=== PATIENT | female | born 1940 | race Caucasian/White ===

== ENCOUNTER 2024-04-11 08:10 | Emergency (ER) | payer MEDICARE ==
[2024-04-11 08:26] VITALS: RESP 16; TEMP 98.3
[2024-04-11] MEDS: MORPHINE SULFATE 4 MG/ML SYRINGE IVP STA (09:12)
[2024-04-11] MEDS: HYDROmorphone 0.5 MG/0.5 ML SYRINGE IVP STA (09:12)
--- NOTE | 2024-04-11 10:50 | CT ---
EXAMINATION TYPE: CT chest wo con DATE OF EXAM: 04/11/2024 COMPARISON: None HISTORY: 83-year-old female Fall, right sided chest and flank pain TECHNIQUE: Contiguous axial scanning of the chest without IV contrast. Coronal/sagittal reconstructio ns performed. CT DLP: 417.5mGycm. Automatic exposure control utilized for a dose reduction. FINDINGS: Heart upper limits of normal in size without pericardial effusion. Three-vessel coronary calcificatio ns are present. Borderline ectasia ascending aorta 3.5 cm. Mild/moderate atherosclerotic arch calcifications within t he thorax vessel branching anatomy. No thoracic lymph adenopathy by CT size criteria. Calcified lower right paratracheal and right hilar lymph nodes compatible with prior granulomas disease. Borderline caliber of main right and left pulmonary arteries measuring up to 2.5 cm may reflect unde rlying pulmonary arterial hypertension. Scattered mild some pleural reticular change/fibrosis throughout the lungs. Some additional strandy a telectasis or scarring in the lower lungs. No consolidation, pneumothorax, or pleural effusion. Calci fied granuloma lateral right mid lung. There is a small to moderate-sized hiatal hernia. Some possible mural thickening at the hiatal hernia , axial images 74. Possible layering sludge versus noncalcified gallstones. No abnormal gallbladder distention. Partially visualized right shoulder arthroplasty. Accentuated mid thoracic kyphosis with mild degener ative disc disease anteriorly. Advanced degenerative change suggested at the left hip with some possi ble distention of the subcoracoid bursa. No displaced rib fracture seen. IMPRESSION: 1. Scattered mild interstitial fibrosis and evidence of prior granulomatous disease. There may be christa e minimal underlying emphysema as well. 2. No acute traumatic sequela identified in the chest. 3. Three-vessel coronary artery calcifications. 4. Small to moderate-sized hiatal hernia. Some possible mural thickening within the hiatal hernia cou ld reflect partial distention, gastritis, or less likely a mucosal lesion. Direct visualization if cl inically indicated.
[2024-04-11] MEDS: LIDOCAINE 4% PATCH TOPICAL ONE (11:33)
--- NOTE | 2024-04-11 11:39 | ED ---
Fall HPI - General Chief Complaint: Fall Stated Complaint: Back pain Time Seen by Provider: 04/11/24 08:12 Source: patient, EMS Mode of arrival: EMS - History of Present Illness Initial Comments: 83-year-old female presents to the emergency department after a fall last night. Patient states she was attempting to change. She accidentally lost her footing in her camper and she fell with her back against a refrigerator. She states she slid down the refrigerator. She denies head injury. No loss of consciousness. She is complaining of pain in her left shoulder blade and left rib cage. EMS transported the patient to the hospital gave her 100 mics of fentanyl. She states this did help her symptoms she admits to pain with inspiration. No hip pain. No back pain. No neck pain. No other alleviating, precipitating or modifying factors - Related Data Previous Rx's Medication Instructions Recorded HYDROcodone/APAP 7.5-325MG [[place] 1 tab PO Q4HR PRN #18 tab 04/11/24 7.5-325] Lidocaine 5% Patch [Lidoderm] 1 patch TOPICAL DAILY #30 patch 04/11/24 Allergies Allergy/AdvReac Type Severity Reaction Status Date / Time morphine Allergy Rash/Hives Verified 04/11/24 09:08 Sulfa (Sulfonamide Allergy Rash/Hives Verified 04/11/24 08:26 Antibiotics) Review of Systems ROS Statement: Those systems with pertinent positive or pertinent negative responses have been documented in the HPI. ROS Other: All systems not noted in ROS Statement are negative. Past Medical History Past Medical History: Diabetes Mellitus, Hypertension, Osteoarthritis (OA), Thyroid Disorder Additional Past Medical History / Comment(s): Depression History of Any Multi-Drug Resistant Organisms: None Reported Past Surgical History: Back Surgery, Hysterectomy, Joint Replacement Additional Past Surgical History / Comment(s): Knee, hip replacement Past Psychological History: Depression Smoking Status: Former smoker Past Alcohol Use History: Occasional Past Drug Use History: None Reported General Exam Limitations: no limitations General appearance: alert, in no apparent distress Head exam: Present: atraumatic, normocephalic, normal inspection Eye exam: Present: normal appearance, PERRL, EOMI. Absent: scleral icterus, conjunctival injection, periorbital swelling ENT exam: Present: normal exam, mucous membranes moist Neck exam: Present: normal inspection. Absent: tenderness, meningismus, lymphadenopathy Respiratory exam: Present: normal lung sounds bilaterally, chest wall tenderness (Tenderness to palpation of the left scapula and posterior left ribs). Absent: respiratory distress, wheezes, rales, rhonchi, stridor Cardiovascular Exam: Present: regular rate, normal rhythm, normal heart sounds. Absent: systolic murmur, diastolic murmur, rubs, gallop, clicks GI/Abdominal exam: Present: soft, normal bowel sounds. Absent: distended, tenderness, guarding, rebound, rigid Extremities exam: Present: normal inspection, full ROM, normal capillary refill. Absent: tenderness, pedal edema, joint swelling, calf tenderness Back exam: Present: normal inspection Neurological exam: Present: alert, oriented X3, CN II-XII intact Psychiatric exam: Present: normal affect, normal mood Skin exam: Present: warm, dry, intact, normal color. Absent: rash Course Vital Signs 04/11/24 04/11/24 04/11/24 08:18 10:00 11:00 Temperature 98.3 F Pulse Rate 72 76 Respiratory 16 16 Rate Blood Pressure 126/72 123/60 O2 Sat by Pulse 92 L 96 99 Oximetry 04/11/24 12:04 Temperature Pulse Rate 70 Respiratory 16 Rate Blood Pressure 108/51 O2 Sat by Pulse 91 L Oximetry Medical Decision Making - Medical Decision Making Was pt. sent in by a medical professional or institution (LEO Tron[place], ICT EDUCATOR, urgent care, hospital, or fpc...) When possible be specific @ -No Did you speak to anyone other than the patient for history (EMS, parent, family, police, friend...)? What history was obtained from this source @ -I spoke with EMS and [id number] for history Did you review nursing and triage notes (agree or disagree)? Why? @ -I reviewed and agree with nursing and triage notes Were old charts reviewed (outside hosp., previous admission, EMS record, old EKG, old radiological studies, urgent care reports/EKG's, fpc records)? Report findings @ -No old charts were reviewed Differential Diagnosis (chest pain, altered mental status, abdominal pain women, abdominal pain men, vaginal bleeding, weakness, fever, dyspnea, syncope, headache, dizziness, GI bleed, back pain, seizure, CVA, palpatations, mental health, musculoskeletal)? @ -Differential Musculoskeletal Muscular strain, contusion, ligament sprain, fracture, arthritis, septic arthritis, bursitis, cellulitis, muscle spasm, nerve compression, DVT, arterial occlusion, herpes zoster, electrolyte abnormality, tumor.... This is not meant to be in all inclusive list EKG interpreted by me (3pts min.). @ -Not done X-rays interpreted by me (1pt min.). @ -None done CT interpreted by me (1pt min.). @ -Yes and demonstrates multiple left-sided rib fractures U/S interpreted by me (1pt. min.). @ -None done What testing was considered but not performed or refused? (CT, X-rays, U/S, labs)? Why? @ -None What meds were considered but not given or refused? Why? @ -None Did you discuss the management of the patient with other professionals (professionals i.e. , PA, ICT EDUCATOR, lab, RT, psych nurse, social and political studies professor, check out cashier, teacher, licensed loan officer, keycase assembler)? Give summary @ -No Was smoking cessation discussed for >3mins.? @ -No Was critical care preformed (if so, how long)? @ -No Were there social determinants of health that impacted care today? How? (Homelessness, low income, unemployed, alcoholism, drug addiction, transportation, low edu. Level, literacy, decrease access to med. care, group home, rehab)? @ -No Was there de-escalation of care discussed even if they declined (Discuss DNR or withdrawal of care, Hospice)? DNR status @ -No What co-morbidities impacted this encounter? (DM, HTN, Smoking, COPD, CAD, Cancer, CVA, ARF, Chemo, Hep., AIDS, mental health diagnosis, sleep apnea, morbid obesity)? @ -None Was patient admitted / discharged? Hospital course, mention meds given and route, prescriptions, significant lab abnormalities, going to OR and other pertinent info. @ -Upon arrival patient seen and evaluated in room 24. Thorough history and physical exam was performed. Patient given additional pain medications before she is sent for CT. CT positive for multiple left-sided rib fractures. This is discussed with the patient. I did discuss overnight observation for pain control however patient would like to go home. She will be prescribed [place]. Side effect profile was discussed including fall risk. Patient also be prescribed Lidoderm patches. Instructed to use them as directed. Follow-up with her doctor and return for any new or worsening symptoms. Patient agreeable plan was discharged in stable condition Undiagnosed new problem with uncertain prognosis? @ -No Drug Therapy requiring intensive monitoring for toxicity (Heparin, Nitro, Insulin, Cardizem)? @ -No Were any procedures done? @ -No Diagnosis/symptom? @ -Acute fall, acute left-sided rib fractures Acute, or Chronic, or Acute on Chronic? @ -Acute Uncomplicated (without systemic symptoms) or Complicated (systemic symptoms)? @ -Complicated Side effects of treatment? @ -No Exacerbation, Progression, or Severe Exacerbation? @ -No Poses a threat to life or bodily function? How? (Chest pain, [place], [place], pneumonia, PE, COPD, DKA, ARF, appy, cholecystitis, CVA, Diverticulitis, Homicidal, Suicidal, threat to staff... and all critical care pts) @ -No Disposition Clinical Impression: Fall, Rib fracture Disposition: HOME SELF-CARE Condition: Stable Instructions (If sedation given, give patient instructions): Rib Fracture (ED), Fall Prevention for Older Adults (ED) Additional Instructions: Alternate taking the [place] with Advil every 4 hours. Use your incentive spirometer at least 10 times per day. Follow-up with your doctor. Return to the emergency department for any new or worsening symptoms to include fevers, chills, cough or shortness of breath Prescriptions: Lidocaine 5% Patch [Lidoderm] 1 patch TOPICAL DAILY #30 patch HYDROcodone/APAP 7.5-325MG [[place] 7.5-325] 1 tab PO Q4HR PRN #18 tab PRN Reason: Pain Is patient prescribed a controlled substance at d/c from ED?: Yes When asked, does pt state using other controlled substances?: No If prescribed controlled substance>3 days was MAPS reviewed?: Prescribed <3 Days If opioid is for acute pain is fill amount 7 days or less?: Yes Referrals: Raleigh Kenyon DO [Primary Care Provider] - 1-2 days Time of Disposition: 11:47
[2024-04-11 12:05] VITALS: BP 108/51; PULSE 70
== END 2024-04-11 12:22 | disposition home or self-care (01) ==
LOC: EC 08:10
DX: S22.32XA Fracture of one rib, left side, initial encounter for closed fracture (principal); Z87.891 Personal history of nicotine dependence; Z88.1 Allergy status to other antibiotic agents; Z88.2 Allergy status to sulfonamides; Z88.5 Allergy status to narcotic agent; W18.30XA Fall on same level, unspecified, initial encounter
CPT/HCPCS: 71250; 99284; 96374; J1170

== ENCOUNTER 2024-07-14 18:47 | Observation (INO) | payer MEDICARE ==
--- NOTE | 2024-07-14 18:57 | ED ---
Weakness HPI - General Stated complaint: weakness Time Seen by Provider: 07/14/24 18:54 Source: RN notes reviewed, old records reviewed Mode of arrival: EMS Limitations: no limitations - History of Present Illness Initial comments: This is a 83-year-old female to the ER for evaluation patient [facility] for evaluation of significant weakness brought in by EMS patient has fever and has known coronavirus MD Complaint: generalized weakness, lack of energy, difficulty walking -: days(s) Location: generalized Severity: moderate Severity scale (1-10): 5 Consistency: constant Improves with: none Worsens with: none Context: history of similar Associated Symptoms: denies other symptoms - Related Data Home Medications Medication Instructions Recorded Confirmed Albuterol Sulfate [Albuterol 2 puff INHALATION RT-Q6H PRN 07/15/24 07/15/24 Sulfate Hfa] Atorvastatin [Lipitor] 40 mg PO DAILY 07/15/24 07/15/24 Divalproex ER [Depakote ER] 500 mg PO HS 07/15/24 07/15/24 Escitalopram [Lexapro] 10 mg PO DAILY 07/15/24 07/15/24 Fluticasone Nasal [place] [Flonase 2 spr EA NOSTRIL DAILY 07/15/24 07/15/24 Nasal [place]] Fosfomycin Tromethamine 3 gm PO DIRECTED 07/15/24 07/15/24 Furosemide [Lasix] 20 mg PO DAILY 07/15/24 07/15/24 Levothyroxine Sodium [Synthroid] 75 mcg PO DAILY 07/15/24 07/15/24 Methenamine Hippurate 1 gm PO BID-W/MEALS 07/15/24 07/15/24 Metoprolol Tartrate [Lopressor] 25 mg PO Q8H 07/15/24 07/15/24 Mirabegron [Myrbetriq] 50 mg PO DAILY 07/15/24 07/15/24 Nystatin/Triamcin Cream [Mycolog 1 applic TOPICAL BID 07/15/24 07/15/24 100,000-0.1 Unit/gm-% Cream] Primidone [Mysoline] 1 dose PO DIRECTED 07/15/24 07/15/24 estradioL [Estring] 1 ring VAGINAL Q84D 07/15/24 07/15/24 rOPINIRole HCL [Requip] 0.25 mg PO HS 07/15/24 07/15/24 Allergies Allergy/AdvReac Type Severity Reaction Status Date / Time morphine Allergy Rash/Hives Verified 07/15/24 09:41 Sulfa (Sulfonamide Allergy Rash/Hives Verified 07/15/24 09:41 Antibiotics) Review of Systems ROS Statement: Those systems with pertinent positive or pertinent negative responses have been documented in the HPI. ROS Other: All systems not noted in ROS Statement are negative. Past Medical History Past Medical History: Diabetes Mellitus, Hypertension, Osteoarthritis (OA), Thyroid Disorder Additional Past Medical History / Comment(s): Depression History of Any Multi-Drug Resistant Organisms: None Reported Past Surgical History: Back Surgery, Hysterectomy, Joint Replacement Additional Past Surgical History / Comment(s): Knee, hip replacement Past Psychological History: Depression Smoking Status: Former smoker Past Alcohol Use History: Occasional Past Drug Use History: None Reported - Past Family History Mother Family Medical History: Rheumatoid Arthritis (RA) General Exam General appearance: alert, in no apparent distress Head exam: Present: atraumatic, normocephalic, normal inspection Eye exam: Present: normal appearance, PERRL, EOMI. Absent: scleral icterus, conjunctival injection, periorbital swelling ENT exam: Present: normal exam, mucous membranes moist Neck exam: Present: normal inspection. Absent: tenderness, meningismus, lymphadenopathy Respiratory exam: Present: normal lung sounds bilaterally. Absent: respiratory distress, wheezes, rales, rhonchi, stridor Cardiovascular Exam: Present: regular rate, normal rhythm, normal heart sounds. Absent: systolic murmur, diastolic murmur, rubs, gallop, clicks GI/Abdominal exam: Present: soft, normal bowel sounds. Absent: distended, tenderness, guarding, rebound, rigid Extremities exam: Present: normal inspection, full ROM, normal capillary refill. Absent: tenderness, pedal edema, joint swelling, calf tenderness Back exam: Present: normal inspection Neurological exam: Present: alert, oriented X3, CN II-XII intact Psychiatric exam: Present: normal affect, normal mood Skin exam: Present: warm, dry, intact, normal color. Absent: rash Course Vital Signs 07/14/24 07/14/24 07/14/24 18:52 21:39 22:56 Temperature 101.0 F H 97.8 F Pulse Rate 76 71 Pulse Rate [ 67 Journeyman Carpenter ] Respiratory 16 16 18 Rate Blood Pressure 126/64 115/63 Blood Pressure 120/66 [Right Arm] O2 Sat by Pulse 96 93 L 94 L Oximetry 07/15/24 07/15/24 07/15/24 01:37 06:40 07:51 Temperature 97.9 F Pulse Rate 63 Pulse Rate [ 64 70 Journeyman Carpenter ] Respiratory 18 18 18 Rate Blood Pressure 112/71 Blood Pressure 117/58 94/51 [Right Arm] O2 Sat by Pulse 96 99 95 Oximetry 07/15/24 07/15/24 07/15/24 08:44 09:04 12:30 Temperature Pulse Rate 62 71 Pulse Rate [ Journeyman Carpenter ] Respiratory 18 18 Rate Blood Pressure 125/71 134/82 Blood Pressure [Right Arm] O2 Sat by Pulse 97 97 97 Oximetry 07/15/24 07/15/24 15:14 15:22 Temperature 98.1 F Pulse Rate 72 74 Pulse Rate [ Journeyman Carpenter ] Respiratory 18 188 H Rate Blood Pressure 115/70 119/61 Blood Pressure [Right Arm] O2 Sat by Pulse 98 96 Oximetry - Reevaluation(s) Reevaluation #1: 07/14/24 18:55 Medical records reviewed Reevaluation #2: 07/14/24 18:56 Patient symptoms improved Reevaluation #3: Patient symptoms are improved here in the ER Reevaluation #4: Was pt. sent in by a medical professional or institution (, PA, LOAN PROCESSOR, urgent care, hospital, or detention...) When possible be specific @ -no Did you speak to anyone other than the patient for history (EMS, parent, family, police, friend...)? What history was obtained from this source @ -no Did you review nursing and triage notes (agree or disagree)? Why? @ -agree Are old charts reviewed (outside hosp., previous admission, EMS record, old EKG, old radiological studies, urgent care reports/EKG's, detention records)? Report findings @ -yes Differential Diagnosis (chest pain, altered mental status, abdominal pain women, abdominal pain men, vaginal bleeding, weakness, fever, dyspnea, syncope, head ache, dizziness, GI bleed, back pain, seizure, CVA, palpatations, mental health, musculoskeletal)? @ -prior EKG interpreted by me (3pts min.). @ -yes X-rays interpreted by me (1pt min.). @ -yes negative for acute disease CT interpreted by me (1pt min.). @ -no U/S interpreted by me (1pt. min.). @ -no What testing was considered but not performed or refused? (CT, X-rays, U/S, labs)? Why? @ -none What meds were considered but not given or refused? Why? @ -none Did you discuss the management of the patient with other professionals (professionals i.e. , PA, LOAN PROCESSOR, lab, RT, psych nurse, social services assistant, nurse college, teacher, commercial escrow officer, case management social worker)? Give summary @ -no Was smoking cessation discussed for >3mins.? @ -no Was critical care preformed (if so, how long)? @ -no Were there social determinants of health that impacted care today? How? (Homelessness, low income, unemployed, alcoholism, drug addiction, transportation, low edu. Level, literacy, decrease access to med. care, skilled nursing, rehab)? @ -none Was there de-escalation of care discussed even if they declined (Discuss DNR or withdrawal of care, Hospice)? DNR status @ -no What co-morbidities impacted this encounter? (DM, HTN, Smoking, COPD, CAD, Cancer, CVA, ARF, Chemo, Hep., AIDS, mental health diagnosis, sleep apnea, mor bid obesity)? @ -none Was patient admitted / discharged? Hospital course, mention meds given and ro lety, prescriptions, significant lab abnormalities, going to OR and other pertinent info. @ - 83 female to ER for positive coronavirus. Patient is found to have fever and persistent symptoms here in the ER no pneumonia, patient will be admitted for supportive care Admitted Undiagnosed new problem with uncertain prognosis? @ -no Drug Therapy requiring intensive monitoring for toxicity (Heparin, Nitro, Insulin, Cardizem)? @ -no Were any procedures done? @ -no Diagnosis/symptom? @ -COVID fever and coronavirus Acute, or Chronic, or Acute on Chronic? @ -Acute Uncomplicated (without systemic symptoms) or Complicated (systemic symptoms)? @ -Complicated Side effects of treatment? @ -no Exacerbation, Progression, or Severe Exacerbation? @ -exacerbation Poses a threat to life or bodily function? How? (Chest pain, [place], [place], pneumonia, PE, COPD, DKA, ARF, appy, cholecystitis, CVA, Diverticulitis, Homicidal, Suicidal, threat to staff... and all critical care pts) @ -yes extremes of age Reevaluation #5: Differential Weakness: Hypoglycemia, shock, sepsis, hyponatremia, anemia, infection, MA, ETOH, adverse medicine reaction, overdose, stroke, this is not meant to be an all-inclusive list. - Consultations Consultation #1: Spoke with admitting physicians who agreed to admit this patient EKG Findings - EKG Comments: EKG Findings:: EKG is sinus 74 NH 163 QRS 81 QTc 423 - EKG Results: EKG: interpreted by GIL Medical Decision Making - Medical Decision Making 83 female to ER for positive coronavirus. Patient is found to have fever and persistent symptoms here in the ER no pneumonia, patient will be admitted for supportive care - Lab Data Result diagrams: 07/17/24 02:53 07/17/24 02:53 Lab Results 07/14/24 07/14/24 07/14/24 Range/Units 12:34 20:24 20:24 WBC 8.4 (3.8-10.6) k/uL RBC 4.53 (3.80-5.40) m/uL Hgb 13.5 (11.4-16.0) gm/dL Hct 42.9 (34.0-46.0) % MCV 94.8 (80.0-100.0) fL MCH 29.9 (25.0-35.0) pg MCHC 31.6 (31.0-37.0) g/dL RDW 14.2 (11.5-15.5) % Plt Count 174 (150-450) k/uL MPV 8.2 Neutrophils % 67 % Lymphocytes % 19 % Monocytes % 9 % Eosinophils % 1 % Basophils % 0 % Neutrophils # 5.6 (1.3-7.7) k/uL Lymphocytes # 1.6 (1.0-4.8) k/uL Monocytes # 0.8 (0-1.0) k/uL Eosinophils # 0.1 (0-0.7) k/uL Basophils # 0.0 (0-0.2) k/uL PT 11.3 (10.0-12.5) sec INR 1.0 (<1.2) APTT 31.5 H (22.0-30.0) sec Sodium (137-145) mmol/L Potassium (3.5-5.1) mmol/L Chloride (98-107) mmol/L Carbon Dioxide (22-30) mmol/L Anion Gap mmol/L BUN (7-17) mg/dL Creatinine (0.52-1.04) mg/dL Est GFR (CKD-EPI)AfAm (>60 ml/min/1.73 sqM) Est GFR (CKD-EPI)NonAf (>60 ml/min/1.73 sqM) Glucose (74-99) mg/dL Plasma Lactic Acid Yasmany (0.7-2.0) mmol/L Calcium (8.4-10.2) mg/dL Phosphorus (2.5-4.5) mg/dL Magnesium (1.6-2.3) mg/dL Total Bilirubin (0.2-1.3) mg/dL AST (14-36) U/L ALT (4-34) U/L Alkaline Phosphatase (38-126) U/L Troponin I (0.000-0.034) ng/mL Total Protein (6.3-8.2) g/dL Albumin (3.5-5.0) g/dL TSH (0.465-4.680) mIU/L Urine Color Yellow Urine Appearance Cloudy H (Clear) Urine pH 5.5 (5.0-8.0) Ur Specific [place] 1.021 (1.001-1.035) Urine Protein 1+ H (Negative) Urine Glucose (UA) Negative (Negative) Urine Ketones Negative (Negative) Urine Blood Trace H (Negative) Urine Nitrite Positive H (Negative) Urine Bilirubin Negative (Negative) Urine Urobilinogen <2.0 (<2.0) mg/dL Ur Leukocyte Esterase Large H (Negative) Urine RBC 8 H (0-5) /hpf Urine WBC >182 H (0-5) /hpf Urine WBC Clumps Rare H (None) /hpf Ur Squamous Epith Cells 10 H (0-4) /hpf Urine Bacteria Many H (None) /hpf Urine Mucus Rare H (None) /hpf 07/14/24 07/14/24 07/14/24 Range/Units 20:24 20:24 20:24 WBC (3.8-10.6) k/uL RBC (3.80-5.40) m/uL Hgb (11.4-16.0) gm/dL Hct (34.0-46.0) % MCV (80.0-100.0) fL MCH (25.0-35.0) pg MCHC (31.0-37.0) g/dL RDW (11.5-15.5) % Plt Count (150-450) k/uL MPV Neutrophils % % Lymphocytes % % Monocytes % % Eosinophils % % Basophils % % Neutrophils # (1.3-7.7) k/uL Lymphocytes # (1.0-4.8) k/uL Monocytes # (0-1.0) k/uL Eosinophils # (0-0.7) k/uL Basophils # (0-0.2) k/uL PT (10.0-12.5) sec INR (<1.2) APTT (22.0-30.0) sec Sodium 136 L (137-145) mmol/L Potassium 4.6 (3.5-5.1) mmol/L Chloride 101 (98-107) mmol/L Carbon Dioxide 28 (22-30) mmol/L Anion Gap 7 mmol/L BUN 13 (7-17) mg/dL Creatinine 0.83 (0.52-1.04) mg/dL Est GFR (CKD-EPI)AfAm 75 (>60 ml/min/1.73 sqM) Est GFR (CKD-EPI)NonAf 65 (>60 ml/min/1.73 sqM) Glucose 115 H (74-99) mg/dL Plasma Lactic Acid Yasmany 1.3 (0.7-2.0) mmol/L Calcium 9.2 (8.4-10.2) mg/dL Phosphorus 3.6 (2.5-4.5) mg/dL Magnesium 1.5 L (1.6-2.3) mg/dL Total Bilirubin 0.6 (0.2-1.3) mg/dL AST 22 (14-36) U/L ALT 7 (4-34) U/L Alkaline Phosphatase 72 (38-126) U/L Troponin I <0.012 (0.000-0.034) ng/mL Total Protein 6.5 (6.3-8.2) g/dL Albumin 3.6 (3.5-5.0) g/dL TSH 2.850 (0.465-4.680) mIU/L Urine Color Urine Appearance (Clear) Urine pH (5.0-8.0) Ur Specific [place] (1.001-1.035) Urine Protein (Negative) Urine Glucose (UA) (Negative) Urine Ketones (Negative) Urine Blood (Negative) Urine Nitrite (Negative) Urine Bilirubin (Negative) Urine Urobilinogen (<2.0) mg/dL Ur Leukocyte Esterase (Negative) Urine RBC (0-5) /hpf Urine WBC (0-5) /hpf Urine WBC Clumps (None) /hpf Ur Squamous Epith Cells (0-4) /hpf Urine Bacteria (None) /hpf Urine Mucus (None) /hpf - Radiology Data Radiology results: report reviewed (Chest x-ray is negative for acute disease), image reviewed Critical Care Time Critical Care Time: Yes Total Critical Care Time: 31 Disposition Clinical Impression: COVID, Fever Disposition: ADMITTED IP TO THIS [facility] Condition: Fair Is patient prescribed a controlled substance at d/c from ED?: No Time of Disposition: 22:40
[2024-07-14] MEDS: SODIUM CHLORIDE 0.9% 1,000 ML IV STA (20:27)
[2024-07-14] MEDS ORDERED: ACETAMINOPHEN TAB 325 MG TAB PO PRN (20:48)
[2024-07-14] MEDS ORDERED: IBUPROFEN 400 MG TAB PO PRN (20:48)
[2024-07-14] MEDS ORDERED: ONDANSETRON 4 MG/2 ML VIAL IVP PRN (20:48)
[2024-07-14] MEDS ORDERED: NALOXONE 0.4 MG/ML 1 ML VIAL IV PRN (20:48)
[2024-07-14 20:52] LABS: Basophils % (A) 0 %; Eosinophils # (A) 0.1 k/uL (0-0.7); Eosinophils % (A) 1 %; HCT 42.9 % (34.0-46.0); HGB 13.5 gm/dL (11.4-16.0); Lymphocytes # (A) 1.6 k/uL (1.0-4.8); Lymphocytes % (A) 19 %; MCH 29.9 pg (25.0-35.0); MCHC 31.6 g/dL (31.0-37.0); MCV 94.8 fL (80.0-100.0); Mean Platelet Volume 8.2; Monocytes # (A) 0.8 k/uL (0-1.0); Monocytes % (A) 9 %; Neutrophils # (A) 5.6 k/uL (1.3-7.7); Neutrophils % (A) 67 %; Platelet Count 174 k/uL (150-450); RBC 4.53 m/uL (3.80-5.40); RDW 14.2 % (11.5-15.5); WBC 8.4 k/uL (3.8-10.6)
[2024-07-14 20:57] LABS: Partial Thromboplastin Time 31.5 sec (22.0-30.0); Prothrombin Time 11.3 sec (10.0-12.5)
[2024-07-14 20:59] LABS: ALT 7 U/L (4-34); African American GFR (CKD) 75 (>60 ml/min/1.73 sqM); Albumin 3.6 g/dL (3.5-5.0); Anion Gap 7 mmol/L; Blood Urea Nitrogen 13 mg/dL (7-17); Calcium 9.2 mg/dL (8.4-10.2); Carbon Dioxide 28 mmol/L (22-30); Chloride 101 mmol/L (98-107); Glucose 115 mg/dL (74-99); Non-African American GFR(CKD) 65 (>60 ml/min/1.73 sqM); Sodium 136 mmol/L (137-145); Total Bilirubin 0.6 mg/dL (0.2-1.3); Total Protein 6.5 g/dL (6.3-8.2)
[2024-07-14 21:07] LABS: AST 22 U/L (14-36); Alkaline Phosphatase 72 U/L (38-126); Potassium 4.6 mmol/L (3.5-5.1)
[2024-07-14 21:08] LABS: Magnesium 1.5 mg/dL (1.6-2.3); Phosphorus 3.6 mg/dL (2.5-4.5)
[2024-07-14] MEDS: ACETAMINOPHEN IV (For NPO) 1,000 MG in EMPTY BAG 1 BAG IVPB STA (21:14)
[2024-07-14] MEDS: DEXAMETHASONE SOD PHOSPHATE 10 MG/ML 1 ML VIAL IVP STA (21:15)
[2024-07-14] MEDS: IBUPROFEN IV 800 MG in SODIUM CHLORIDE 0.9% 250 ML IV ONE (21:30)
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
[2024-07-14] MEDS: PANTOPRAZOLE 40 MG/10 ML VIAL IV SCH (23:05)
--- NOTE | 2024-07-15 03:21 | P.HPIM ---
History of Present Illness H&P Date: 07/15/24 Chief Complaint: Weakness Patient is a 83-year-old female with past medical history of multiple falls presented to the ED with weakness. She mentions of having multiple falls on Thursday(07/11/24) for which she went to [facility]. She mentions the weakness started around the same time. She does not report any prodromal signs before the fall or headache/confusion after the fall, denies jerking movement of the limbs. She was not found to have any fractures but tested positive for COVID-19 and was discharged shortly after from [facility]. But her son (who she gustavo es with) felt she needs care in the hospital which is when she came to the ER here at [facility]. She reports having mild shortness of breath and dry cough without any production. Her voice is hoarse which she attributes to laryngitis from coughing. She also reports not being able to eat well since January 2024 because of some problem in her mouth. She visited her dentist but they did not find any abnormalities. She has also gotten tested for Parkinson's due to tremors but was told she does not have it. She reports having joint pain from arthritis as well as stress urinary incontinence for which she uses a sling. Denies fever, chills, chest pain, abdominal pain, nausea, vomiting, dysuria. Vitals: T 101 F, P 76 bpm, RR 16, BP 106/64, O2 sat 96% on 2 L nasal cannula Chest x-ray: Small focal opacity in the right paratracheal region consistent with pneumonia or neoplasm. Labs: WBC 8.4, hemoglobin 13.5, APTT 31.5, sodium 136, glucose 115, magnesium 1.5, troponin<0.012, TSH 2.850 ED documentation reviewed. Review of systems: Pertinent positives and negatives as discussed in HPI, a complete review of systems was performed and all other systems are negative. PMH: Diabetes, hypertension, osteoarthritis, depression, hypothyroidism PSH: Appendicectomy, hysterectomy, knee replacement surgery, back fusion, shoulder replacement surgery Social history: Tobacco: Former smoker Alcohol: Occasional Recreational drugs: Denies use Travel: No recent travel history Sick contacts: None Physical examination: Vital signs reviewed General: non toxic, no distress, appears at stated age, overweight Derm: no unusual rashes/lesions, warm Head: atraumatic, normocephalic, symmetric Eyes: EOMI, anicteric sclera ENT: Nose and ears atraumatic Mouth: no lip lesion, mucus membranes moist Cardiovascular: S1S2 reg, no murmur, no edema Lungs: CTA bilateral, no rhonchi, no rales, no accessory muscle use Abdominal: soft, nontender to palpation, no guarding Ext: muscle strength 5 out of 5 in all 4 extremities grossly, ulnar drift, [place] nodes Neuro: CN II-XI grossly intact, no gross focal neuro deficits Psych: Alert, oriented to person and place, not oriented to time, appropriate affect Assessment/Plan: Patient is an 83-year-old female with past medical history of multiple falls who presented to the ED with weakness, shortness of breath, cough with COVID-19 infection. #. COVID-19 pneumonitis, with hypoxic resp failure - Patient currently on 2 L of oxygen via nasal cannula and saturating at 96% - S/p Decadron 10 mg IVP once stat - C/w Decadron 6 mg po qd - Obtain CRP, LDH, Procalcitonin #. History of multiple falls, Fragility fracture Start on calcium and Vitamin D supplements - Patient would likely benefit from bisphosphonate use - PT consult #. Mild Hypomagnesemia Magnesium 1.5 - Replace and monitor Monitor BMP #. Mild hyponatremia, (unknown baseline) Sodium 136 Monitor BMP #. Pain management - C/w acetaminophen 650 mg p.o. every 6 hours as needed and ibuprofen 4 mg p.o. every 6 hours as needed #. Nausea and vomiting - C/W ondansetron 4 mg IV every 8 hours as needed Chronic conditions #. Hypertension #. Type II diabetes mellitus #. History of hypothyroidism #. History of osteoarthritis #. History of depression - C/W home meds once confirmed - Check A1C levels F: None E: Replete as required N: Regular diet A: DVT prophylaxis: Lovenox SQ 40 mg daily GI prophylaxis: Protonix 40 mg IV daily The patient is admitted with an anticipated more than 2 midnight stay for evaluation of weakness, shortness of breath and cough CODE STATUS: Full code Discussed with: Patient Anticipated discharge place: Home Past Medical History Past Medical History: Diabetes Mellitus, Hypertension, Osteoarthritis (OA), Thyroid Disorder Additional Past Medical History / Comment(s): Depression History of Any Multi-Drug Resistant Organisms: None Reported Past Surgical History: Back Surgery, Hysterectomy, Joint Replacement Additional Past Surgical History / Comment(s): Knee, hip replacement Past Psychological History: Depression Smoking Status: Former smoker Past Alcohol Use History: Occasional Past Drug Use History: None Reported Medications and Allergies Home Medications Medication Instructions Recorded Confirmed Type HYDROcodone/APAP 7.5-325MG [[place] 1 tab PO Q4HR PRN #18 tab 04/11/24 Rx 7.5-325] Lidocaine 5% Patch [Lidoderm] 1 patch TOPICAL DAILY #30 patch 04/11/24 Rx Allergies Allergy/AdvReac Type Severity Reaction Status Date / Time morphine Allergy Rash/Hives Verified 07/14/24 19:02 Sulfa (Sulfonamide Allergy Rash/Hives Verified 07/14/24 19:02 Antibiotics) Physical Exam Vitals: Vital Signs Temp Pulse Pulse Resp BP BP Pulse Ox 07/15/24 01:37 64 18 117/58 96 07/14/24 22:56 97.8 F 67 18 120/66 94 L 07/14/24 21:39 71 16 115/63 93 L 07/14/24 18:52 101.0 F H 76 16 126/64 96 Intake and Output 07/14/24 07/14/24 07/15/24 14:59 22:59 06:59 Other: Weight 63.503 kg Results CBC & Chem 7: 07/14/24 20:24 07/14/24 20:24 Labs: Abnormal Lab Results - Last 24 Hours (Table) 07/14/24 07/14/24 Range/Units 20:24 20:24 APTT 31.5 H (22.0-30.0) sec Sodium 136 L (137-145) mmol/L Glucose 115 H (74-99) mg/dL Magnesium 1.5 L (1.6-2.3) mg/dL Thrombosis Risk Factor Assmnt - Choose All That Apply Each Risk Factor Represents 3 Points: Age 75 years or older Thrombosis Risk Factor Assessment Total Risk Factor Score: 3 Thrombosis Risk Factor Assessment Level: Moderate Risk
[2024-07-15] MEDS ORDERED: Magnesium Replacement Protocol 1 EACH MISC MISCELLANE PRN (06:15)
[2024-07-15] MEDS: CALCIUM CARB-VIT D 500 MG-5 MCG TAB PO SCH (07:46)
[2024-07-15] MEDS: dexAMETHasone 2 MG TAB PO SCH (08:47)
[2024-07-15 08:48] LABS: LDH 193 U/L (120-246); Magnesium 1.6 mg/dL (1.5-2.4); Phosphorus 4.1 mg/dL (2.4-5.1)
[2024-07-15] MEDS: ENOXAPARIN 40 MG/0.4 ML SYRINGE SQ SCH (08:48)
[2024-07-15] MEDS ORDERED: CHOLECALCIFEROL 125 MCG (5000 IU) TABLET PO SCH (09:00)
[2024-07-15 09:21] LABS: Basophils # (A) 0.02 X 10*3/uL (0.00-0.10); Basophils % (A) 0.3 %; Eosinophils # (A) 0 X 10*3/uL (0.04-0.35); Eosinophils % (A) 0 %; HCT 40.6 % (37.2-46.3); Lymphocytes # (A) 1.11 X 10*3/uL (0.90-5.00); MCH 30.7 pg (27.0-32.0); MCV 95.8 FL (80.0-97.0); Mean Platelet Volume 11.6 FL (9.5-12.2); Monocytes # (A) 0.22 X 10*3/uL (0.20-1.00); Monocytes % (A) 3.6 %; NRBC Per 100 WBC 0 X 10*3/uL (0.00-0.01); Neutrophils # (A) 4.79 X 10*3/uL (1.80-7.70); Neutrophils % (A) 77.8 %; Platelet Count 166 X 10*3/uL (140-440); RBC 4.24 X 10*6/uL (4.10-5.20); RDW 14.7 % (11.5-14.5); WBC 6.16 X 10*3/uL (4.50-10.00)
[2024-07-15 09:30] LABS: ALT 5 U/L (8-44); AST 15 U/L (13-35); Albumin 3.4 g/dL (3.8-4.9); Albumin/Globulin Ratio 1.42 Ratio (1.60-3.17); Alkaline Phosphatase 87 U/L (41-126); Blood Urea Nitrogen 16.7 mg/dL (9.0-27.0); Calcium 8.6 mg/dL (8.7-10.3); Chloride 103 mmol/L (96-109); Globulin 2.4 g/dL (1.6-3.3); Glucose 174 mg/dL (70-110); Potassium 4.9 mmol/L (3.5-5.5); Sodium 137 mmol/L (135-145); Total Bilirubin 0.2 mg/dL (0.3-1.2); Total Protein 5.8 g/dL (6.2-8.2)
[2024-07-15 12:48] LABS: Appearance,Urine Cloudy (Clear); Bacteria,Urine Many /hpf; Bilirubin,Urine Negative (Negative); Blood,Urine Trace (Negative); Color,Urine Yellow; Glucose,Urine (UA) Negative (Negative); Ketones,Urine Negative (Negative); Leukocyte Esterase,Urine Large (Negative); Mucus,Urine Rare /hpf; Nitrite,Urine Positive (Negative); PH, Urine 5.5 (5.0-8.0); Protein,Urine 1+ (Negative); RBC,Urine 8 /hpf (0-5); Specific Gravity,Urine 1.021 (1.001-1.035); Squamous Epithelial Cell,Urine 10 /hpf (0-4); Urobilinogen,Urine <2.0 mg/dL (<2.0); WBC,Urine >182 /hpf (0-5)
[2024-07-15] MEDS ORDERED: ALBUTEROL HFA INHALER INHALATION PRN (16:24)
[2024-07-15] MEDS ORDERED: DEXTROSE 50% SYRINGE 50 ML IVP PRN ×2 (16:37)
--- NOTE | 2024-07-15 16:43 | P.PN ---
Subjective Progress Note Date: 07/15/24 Hospital course: Patient is a very pleasant 83-year-old female with a past medical history of hypertension, hypothyroidism, diabetes mellitus, and depression. She presented to the emergency department secondary to reports of weakness recurrent falls over the past week after recent diagnosis of COVID-19 infection. Upon arrival to our facility, patient underwent evaluation in the emergency department. Vital signs upon arrival show blood pressure 126/64, heart rate 76, respiratory rate 16, temp 101.0 F, and SpO2 of 96% on room air. 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 Labs completed and reviewed. CBC unremarkable. Coagulation profile showing high PTT of 31.5 otherwise normal findings. BMP showing no significant abnormalities. Blood glucose was 115. Lactic acid 1.3. Magnesium was low at 1.5. Liver profile unremarkable. Troponin was negative at less than 0.012 and TSH normal findings at 2.850. Urinalysis was a contaminated specimen, concerning for infection with nitrites, leukocyte esterase and greater than 182 WBCs. Patient admitted under our services at this time. Physical exam: Vital signs reviewed and stable. General: Nontoxic, no distress and appears stated age. Thin build Derm: Skin warm and dry, normal coloration for ethnicity. Head: Atraumatic, normocephalic and symmetric. Eyes: EOM's intact, no lid lag, and anicteric sclera Mouth: no lip lesions, mucus membranes moist Cardiovascular: regular rate and rhythm with normal S1S2, systolic murmur, positive posterior tibial pulses bilaterally, and cap refill < 2 seconds. Lungs: Respirations even, regular, and unlabored on room air. Lungs with soft expiratory wheezes, coarse cough noted at time of assessment Abdominal: soft, nontender to palpation, no guarding, no appreciable organomega ly Ext: ROM intact. No gross muscle atrophy, no edema, no contractures Neuro: Speech clear, face symmetrical and CN II-XII grossly intact with no noted focal neuro deficits Psych: Alert and oriented to person, place, time, and situation. Appropriate and pleasant affect. Assessment and Plan of Care: COVID-19 pneumonitis with hypoxic respiratory failure Acute respiratory failure with hypoxia secondary to COVID 19 pneumonia -Continue supplemental oxygen titrated as needed to maintain SPO2 equal to or greater than 90% -Continue albuterol inhaler 2 puffs every 6 hours as needed for wheezing/catherine rtness of breath -Patient placed on scheduled Robitussin 200 mg every 6 hours and as needed Tessalon pearls for persistent cough. -Telemetry monitoring. -Continue trending inflammatory markers -Encourage Incentive Spirometry 10-15x hourly while awake -Steroids: Decadron 6 mg daily -DVT prophylaxis with Lovenox. -Strict Droplet plus Contact precautions UTI -Follow-up on urine culture. -Continue IV antibiotics with Rocephin 2 g IVPB daily. Weakness with recurrent falls -Possibly secondary to acute infection with UTI as well as COVID-19 -Maintain fall precautions -Consult to physical therapy for evaluation. Diabetes mellitus with hyperglycemia -Patient placed on glycemic protocol with NovoLog sliding scale. Hypertension -Continue daily medication regimen with metoprolol tartrate 25 mg every 8 hours Hypothyroidism -Continue daily medication regimen with levothyroxine 75 mcg daily Hyperlipidemia -Continue daily medication regimen with atorvastatin 40 mg daily. Depression -Continue daily medication regimen with Depakote 500 mg nightly and Lexapro 10 mg daily CODE STATUS: Full code DVT prophylaxis: Lovenox Anticipated discharge date: Pending clinical course Anticipated discharge place: Pending clinical course Patient was seen independently by Nurse Pracitioner. This document was prepared using [employer] dictation software. Please allow for errors in regulatory coordinator, while rare they do occur. I reviewed the documentation as provided by the LATONIA above, who is the original author of this note. I agree with the documented assessment and plan, with the following changes: none Objective - Vital Signs Vital signs: Vital Signs Temp 98.1 F 07/15/24 15:22 Pulse 74 07/15/24 15:22 Resp 188 H 07/15/24 15:22 BP 119/61 07/15/24 15:22 Pulse Ox 96 07/15/24 15:22 FiO2 Intake & Output 07/14/24 07/15/24 07/15/24 18:59 06:59 18:59 Weight 63.503 kg - Labs CBC & Chem 7: 07/15/24 06:06 07/15/24 06:06 Labs: Abnormal Lab Results - Last 24 Hours (Table) 07/14/24 07/14/24 07/14/24 Range/Units 12:34 20:24 20:24 RDW (11.5-14.5) % Eosinophils # (0.04-0.35) X 10*3/uL APTT 31.5 H (22.0-30.0) sec Sodium 136 L (137-145) mmol/L Est GFR (CKD-EPI) (>=60) Glucose 115 H (74-99) mg/dL Calcium (8.7-10.3) mg/dL Magnesium 1.5 L (1.6-2.3) mg/dL Total Bilirubin (0.3-1.2) mg/dL ALT (8-44) U/L C-Reactive Protein (0.00-0.80) mg/dL Total Protein (6.2-8.2) g/dL Albumin (3.8-4.9) g/dL Albumin/Globulin Ratio (1.60-3.17) Ratio Urine Appearance Cloudy H (Clear) Urine Protein 1+ H (Negative) Urine Blood Trace H (Negative) Urine Nitrite Positive H (Negative) Ur Leukocyte Esterase Large H (Negative) Urine RBC 8 H (0-5) /hpf Urine WBC >182 H (0-5) /hpf Urine WBC Clumps Rare H (None) /hpf Ur Squamous Epith Cells 10 H (0-4) /hpf Urine Bacteria Many H (None) /hpf Urine Mucus Rare H (None) /hpf 07/15/24 07/15/24 Range/Units 06:06 06:06 RDW 14.7 H (11.5-14.5) % Eosinophils # 0 L (0.04-0.35) X 10*3/uL APTT (22.0-30.0) sec Sodium (137-145) mmol/L Est GFR (CKD-EPI) 56 L (>=60) Glucose 174 H (74-99) mg/dL Calcium 8.6 L (8.7-10.3) mg/dL Magnesium (1.6-2.3) mg/dL Total Bilirubin 0.2 L (0.3-1.2) mg/dL ALT 5 L (8-44) U/L C-Reactive Protein 6.40 H (0.00-0.80) mg/dL Total Protein 5.8 L (6.2-8.2) g/dL Albumin 3.4 L (3.8-4.9) g/dL Albumin/Globulin Ratio 1.42 L (1.60-3.17) Ratio Urine Appearance (Clear) Urine Protein (Negative) Urine Blood (Negative) Urine Nitrite (Negative) Ur Leukocyte Esterase (Negative) Urine RBC (0-5) /hpf Urine WBC (0-5) /hpf Urine WBC Clumps (None) /hpf Ur Squamous Epith Cells (0-4) /hpf Urine Bacteria (None) /hpf Urine Mucus (None) /hpf
[2024-07-15 17:07] LABS: Glucose,Whole Blood 135 mg/dL (70-110)
[2024-07-15] MEDS: NON FORMULARY DRUG (Methenamine Hippurate [Methenamine Hippurate] 1 GM Tablet) PO SCH (17:57)
[2024-07-15] MEDS: guaiFENesin SYRUP 100MG/5ML 200 MG/10 ML CUP PO SCH (18:47)
[2024-07-15] MEDS: METOPROLOL TARTRATE 25 MG TAB PO SCH (18:47)
[2024-07-15] MEDS: INSULIN ASPART (NovoLOG) 100 UNIT/ML VIAL SQ SCH (18:48)
[2024-07-15 20:16] LABS: Glucose,Whole Blood 146 mg/dL (70-110)
[2024-07-15] MEDS ORDERED: NYSTAT-TRIAMCIN 100,000-0.1 UNIT/GM-% CREAM 30 GM TUBE TOPICAL SCH (21:00)
[2024-07-15] MEDS: NYSTATIN 100,000UNIT/GM CREAM 30 GM TUBE TOPICAL SCH (21:32)
[2024-07-15] MEDS: DIVALPROEX ER 500 MG TAB.ER.24H PO SCH (21:32)
[2024-07-15] MEDS: TRIAMCINOLONE 0.1% CREAM 80 GM TUBE TOPICAL SCH (21:33)
[2024-07-16] MEDS: BENZONATATE 100 MG CAP PO PRN
[2024-07-16 06:24] LABS: Glucose,Whole Blood 101 mg/dL (70-110)
[2024-07-16] MEDS: LEVOTHYROXINE 75 MCG TAB PO SCH (06:38)
[2024-07-16] MEDS: PANTOPRAZOLE 40 MG TABLET PO SCH (06:38)
[2024-07-16] MEDS: ATORVASTATIN 40 MG TAB PO SCH (08:10)
[2024-07-16] MEDS: ESCITALOPRAM 10 MG TAB PO SCH (08:11)
[2024-07-16] MEDS: FLUTICASONE NASAL 50MCG/SPRAY 16GM BTL EA NOSTRIL SCH (08:12)
[2024-07-16 10:03] LABS: ALT 5 U/L (8-44); AST 15 U/L (13-35); Albumin/Globulin Ratio 1.43 Ratio (1.60-3.17); Alkaline Phosphatase 66 U/L (41-126); Blood Urea Nitrogen 16.8 mg/dL (9.0-27.0); Calcium 8.4 mg/dL (8.7-10.3); Chloride 105 mmol/L (96-109); Globulin 2.1 g/dL (1.6-3.3); Glucose 111 mg/dL (70-110); Magnesium 1.5 mg/dL (1.5-2.4); Sodium 139 mmol/L (135-145); Total Bilirubin <0.2 mg/dL (0.3-1.2); Total Protein 5.1 g/dL (6.2-8.2)
[2024-07-16 10:05] LABS: HCT 34.1 % (37.2-46.3); MCH 30.5 pg (27.0-32.0); MCHC 32.3 g/dL (32.0-37.0); MCV 94.5 FL (80.0-97.0); Mean Platelet Volume 11.4 FL (9.5-12.2); NRBC Per 100 WBC 0 X 10*3/uL (0.00-0.01); Platelet Count 171 X 10*3/uL (140-440); RBC 3.61 X 10*6/uL (4.10-5.20); RDW 14.6 % (11.5-14.5); WBC 8.03 X 10*3/uL (4.50-10.00)
[2024-07-16 11:19] LABS: Glucose,Whole Blood 135 mg/dL (70-110)
[2024-07-16 16:23] LABS: Glucose,Whole Blood 210 mg/dL (70-110)
--- NOTE | 2024-07-16 17:52 | P.PN ---
Subjective Progress Note Date: 07/16/24 Hospital course: Patient is a very pleasant 83-year-old female with a past medical history of hypertension, hypothyroidism, diabetes mellitus, and depression. She presented to the emergency department secondary to reports of weakness recurrent falls over the past week after recent diagnosis of COVID-19 infection. Upon arrival to our facility, patient underwent evaluation in the emergency department. Vital signs upon arrival show blood pressure 126/64, heart rate 76, respiratory rate 16, temp 101.0 F, and SpO2 of 96% on room air. 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 Labs completed and reviewed. CBC unremarkable. Coagulation profile showing high PTT of 31.5 otherwise normal findings. BMP showing no significant abnormalities. Blood glucose was 115. Lactic acid 1.3. Magnesium was low at 1.5. Liver profile unremarkable. Troponin was negative at less than 0.012 and TSH normal findings at 2.850. Urinalysis was a contaminated specimen, concerning for infection with nitrites, leukocyte esterase and greater than 182 WBCs. Patient admitted under our services at this time. Physical exam: Patient seen and fully evaluated at bedside this morning. She reports pers istent coarse cough and generalized fatigue otherwise denies any complaints at this time. Vital signs reviewed and stable. General: Nontoxic, no distress and appears stated age. Thin build Derm: Skin warm and dry, normal coloration for ethnicity. Head: Atraumatic, normocephalic and symmetric. Eyes: EOM's intact, no lid lag, and anicteric sclera Mouth: no lip lesions, mucus membranes moist Cardiovascular: regular rate and rhythm with normal S1S2, systolic murmur, positive posterior tibial pulses bilaterally, and cap refill < 2 seconds. Lungs: Respirations even, regular, and unlabored on room air. Lungs with soft expiratory wheezes, coarse cough noted at time of assessment Abdominal: soft, nontender to palpation, no guarding, no appreciable organomegaly Ext: ROM intact. No gross muscle atrophy, no edema, no contractures Neuro: Speech clear, face symmetrical and CN II-XII grossly intact with no noted focal neuro deficits Psych: Alert and oriented to person, place, time, and situation. Appropriate and pleasant affect. Assessment and Plan of Care: COVID-19 pneumonitis with hypoxic respiratory failure Acute respiratory failure with hypoxia secondary to COVID 19 pneumonia -Continue supplemental oxygen titrated as needed to maintain SPO2 equal to or greater than 90% -Continue albuterol inhaler 2 puffs every 6 hours as needed for wheezing/shortness of breath -Patient placed on scheduled Robitussin 200 mg every 6 hours and as needed Tessalon pearls for persistent cough. -Telemetry monitoring. -Encourage Incentive Spirometry 10-15x hourly while awake -Steroids: Decadron 6 mg daily (Day 2 of 5) -DVT prophylaxis with Lovenox. -Strict Droplet plus Contact precautions UTI -Follow-up on urine culture. -Continue IV antibiotics with Rocephin 2 g IVPB daily. Weakness with recurrent falls -Possibly secondary to acute infection with UTI as well as COVID-19 -Maintain fall precautions -Consult to physical therapy for evaluation. Hypomagnesemia Magnesium 1.5. Orders placed for magnesium sulfate 2 g IVPB x 1 dose. Will repeat magnesium levels with a.m. labs and replace abnormal electrolyte values as indicated based upon these findings. Diabetes mellitus with hyperglycemia -Patient placed on glycemic protocol with NovoLog sliding scale. Hypertension -Continue daily medication regimen with metoprolol tartrate 25 mg every 8 hours Hypothyroidism -Continue daily medication regimen with levothyroxine 75 mcg daily Hyperlipidemia -Continue daily medication regimen with atorvastatin 40 mg daily. Depression -Continue daily medication regimen with Depakote 500 mg nightly and Lexapro 10 mg daily Data and imaging reviewed: Morning labs reviewed. CBC showing mild normocytic anemia with hemoglobin of 11.0. BMP unremarkable. Blood glucose 111. Magnesium low at 1.5. Liver profile showing no significant abnormalities. Vital signs reviewed. Blood pressure slightly soft this morning at 94/55, heart rate 72, respiratory rate 17, temp 97.4 F, and SpO2 of 99% on 2 L. Discussed with RN to wean patient off oxygen as she tolerates. CODE STATUS: Full code DVT prophylaxis: Lovenox Anticipated discharge date: Pending clinical course Anticipated discharge place: Pending clinical course Patient was seen independently by Nurse Pracitioner. This document was prepared using [employer] dictation software. Please allow for errors in tar processing technician, while rare they do occur. I reviewed the documentation as provided by the LATONIA above, who is the original author of this note. I agree with the documented assessment and plan, with the following changes: none Objective - Vital Signs Vital signs: Vital Signs Temp 97.4 F L 07/16/24 07:18 Pulse 72 07/16/24 07:18 Resp 17 07/16/24 07:18 BP 94/55 07/16/24 07:18 Pulse Ox 99 07/16/24 08:09 FiO2 Intake & Output 07/15/24 07/16/24 07/16/24 18:59 06:59 18:59 Intake Total 50 Balance 50 Weight 63.503 kg Intake: Intake, IV Titration 50 Amount cefTRIAXone 2 gm In 50 Sodium Chloride 0.9% 50 ml @ 100 mls/hr IVPB Q24HR [facility] Rx#:[id number] Other: Voiding Method External Catheter # Voids 2 - Labs CBC & Chem 7: 07/16/24 05:28 07/16/24 05:28 Labs: Abnormal Lab Results - Last 24 Hours (Table) 07/14/24 07/15/24 07/15/24 Range/Units 12:34 06:06 06:06 RDW 14.7 H (11.5-14.5) % Eosinophils # 0 L (0.04-0.35) X 10*3/uL Est GFR (CKD-EPI) 56 L (>=60) Glucose 174 H (70-110) mg/dL POC Glucose (mg/dL) (70-110) mg/dL Calcium 8.6 L (8.7-10.3) mg/dL Total Bilirubin 0.2 L (0.3-1.2) mg/dL ALT 5 L (8-44) U/L C-Reactive Protein 6.40 H (0.00-0.80) mg/dL Total Protein 5.8 L (6.2-8.2) g/dL Albumin 3.4 L (3.8-4.9) g/dL Albumin/Globulin Ratio 1.42 L (1.60-3.17) Ratio Urine Appearance Cloudy H (Clear) Urine Protein 1+ H (Negative) Urine Blood Trace H (Negative) Urine Nitrite Positive H (Negative) Ur Leukocyte Esterase Large H (Negative) Urine RBC 8 H (0-5) /hpf Urine WBC >182 H (0-5) /hpf Urine WBC Clumps Rare H (None) /hpf Ur Squamous Epith Cells 10 H (0-4) /hpf Urine Bacteria Many H (None) /hpf Urine Mucus Rare H (None) /hpf 07/15/24 07/15/24 Range/Units 17:06 20:14 RDW (11.5-14.5) % Eosinophils # (0.04-0.35) X 10*3/uL Est GFR (CKD-EPI) (>=60) Glucose (70-110) mg/dL POC Glucose (mg/dL) 135 H 146 H (70-110) mg/dL Calcium (8.7-10.3) mg/dL Total Bilirubin (0.3-1.2) mg/dL ALT (8-44) U/L C-Reactive Protein (0.00-0.80) mg/dL Total Protein (6.2-8.2) g/dL Albumin (3.8-4.9) g/dL Albumin/Globulin Ratio (1.60-3.17) Ratio Urine Appearance (Clear) Urine Protein (Negative) Urine Blood (Negative) Urine Nitrite (Negative) Ur Leukocyte Esterase (Negative) Urine RBC (0-5) /hpf Urine WBC (0-5) /hpf Urine WBC Clumps (None) /hpf Ur Squamous Epith Cells (0-4) /hpf Urine Bacteria (None) /hpf Urine Mucus (None) /hpf
[2024-07-16] MEDS: MAGNESIUM SULFATE-D5W PMX 1 GM in DEXTROSE/WATER 1 100ML.BAG IVPB SCH (18:55)
[2024-07-16 20:00] LABS: Glucose,Whole Blood 240 mg/dL (70-110)
[2024-07-17 06:32] LABS: Glucose,Whole Blood 112 mg/dL (70-110)
[2024-07-17 09:14] LABS: HCT 34.4 % (37.2-46.3); HGB 11.2 g/dL (12.0-15.0); MCHC 32.6 g/dL (32.0-37.0); MCV 92.2 FL (80.0-97.0); NRBC Per 100 WBC 0 X 10*3/uL (0.00-0.01); Platelet Count 213 X 10*3/uL (140-440); RBC 3.73 X 10*6/uL (4.10-5.20); RDW 14.6 % (11.5-14.5); WBC 8.13 X 10*3/uL (4.50-10.00)
[2024-07-17 10:18] LABS: ALT <5 U/L (8-44); AST 14 U/L (13-35); Albumin 3.2 g/dL (3.8-4.9); Albumin/Globulin Ratio 1.39 Ratio (1.60-3.17); Alkaline Phosphatase 71 U/L (41-126); BUN/Creat Ratio 20.12 Ratio (12.00-20.00); Blood Urea Nitrogen 16.1 mg/dL (9.0-27.0); Calcium 8.9 mg/dL (8.7-10.3); Carbon Dioxide 25.1 mmol/L (21.6-31.8); Chloride 101 mmol/L (96-109); Globulin 2.3 g/dL (1.6-3.3); Glucose 129 mg/dL (70-110); Magnesium 1.9 mg/dL (1.5-2.4); Potassium 4.2 mmol/L (3.5-5.5); Sodium 137 mmol/L (135-145); Total Bilirubin <0.2 mg/dL (0.3-1.2); Total Protein 5.5 g/dL (6.2-8.2)
[2024-07-17 11:41] LABS: Glucose,Whole Blood 144 mg/dL (70-110)
--- NOTE | 2024-07-17 15:06 | P.PN ---
Subjective Progress Note Date: 07/17/24 Hospital course: Patient is a very pleasant 83-year-old female with a past medical history of hypertension, hypothyroidism, diabetes mellitus, and depression. She presented to the emergency department secondary to reports of weakness recurrent falls over the past week after recent diagnosis of COVID-19 infection. Upon arrival to our facility, patient underwent evaluation in the emergency department. Vital signs upon arrival show blood pressure 126/64, heart rate 76, respiratory rate 16, temp 101.0 F, and SpO2 of 96% on room air. 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 Labs completed and reviewed. CBC unremarkable. Coagulation profile showing high PTT of 31.5 otherwise normal findings. BMP showing no significant abnormalities. Blood glucose was 115. Lactic acid 1.3. Magnesium was low at 1.5. Liver profile unremarkable. Troponin was negative at less than 0.012 and TSH normal findings at 2.850. Urinalysis was a contaminated specimen, concerning for infection with nitrites, leukocyte esterase and greater than 182 WBCs. Patient admitted under our services at this time. Physical exam: Patient seen and fully evaluated at bedside this morning. She reports pers istent coarse cough and generalized fatigue otherwise denies any complaints at this time. Vital signs reviewed and stable. General: Nontoxic, no distress and appears stated age. Thin build Derm: Skin warm and dry, normal coloration for ethnicity. Head: Atraumatic, normocephalic and symmetric. Eyes: EOM's intact, no lid lag, and anicteric sclera Mouth: no lip lesions, mucus membranes moist Cardiovascular: regular rate and rhythm with normal S1S2, systolic murmur, positive posterior tibial pulses bilaterally, and cap refill < 2 seconds. Lungs: Respirations even, regular, and unlabored on room air. Lungs with soft expiratory wheezes, coarse cough noted at time of assessment Abdominal: soft, nontender to palpation, no guarding, no appreciable organomegaly Ext: ROM intact. No gross muscle atrophy, no edema, no contractures Neuro: Speech clear, face symmetrical and CN II-XII grossly intact with no noted focal neuro deficits Psych: Alert and oriented to person, place, time, and situation. Appropriate and pleasant affect. Assessment and Plan of Care: COVID-19 pneumonitis with hypoxic respiratory failure Acute respiratory failure with hypoxia secondary to COVID 19 pneumonia -Continue supplemental oxygen titrated as needed to maintain SPO2 equal to or greater than 90% -Continue albuterol inhaler 2 puffs every 6 hours as needed for wheezing/shortness of breath -Patient placed on scheduled Robitussin 200 mg every 6 hours and as needed Tessalon pearls for persistent cough. -Telemetry monitoring. -Encourage Incentive Spirometry 10-15x hourly while awake -Steroids: Decadron 6 mg daily (Day 3 of 5) -DVT prophylaxis with Lovenox. -Strict Droplet plus Contact precautions UTI -Follow-up on urine culture. -Continue IV antibiotics with Rocephin 2 g IVPB daily. Weakness with recurrent falls -Possibly secondary to acute infection with UTI as well as COVID-19 -Maintain fall precautions -Consult to physical therapy for evaluation. Hypomagnesemia Magnesium 1.5. Orders placed for magnesium sulfate 2 g IVPB x 1 dose. Will repeat magnesium levels with a.m. labs and replace abnormal electrolyte values as indicated based upon these findings. Diabetes mellitus with hyperglycemia -Patient placed on glycemic protocol with NovoLog sliding scale. Hypertension -Continue daily medication regimen with metoprolol tartrate 25 mg every 8 hours Hypothyroidism -Continue daily medication regimen with levothyroxine 75 mcg daily Hyperlipidemia -Continue daily medication regimen with atorvastatin 40 mg daily. Depression -Continue daily medication regimen with Depakote 500 mg nightly and Lexapro 10 mg daily Data and imaging reviewed: Morning labs reviewed. CBC showing mild normocytic anemia with hemoglobin of 11.2. BMP unremarkable. Blood glucose 129. Magnesium low at 1.9. Liver profile showing a less than 0.2, AST of 14, ALT less than 5, and alkaline phosphatase of 71 with albumin of 3.2. Vital signs reviewed. Blood pressure 122/75, heart rate 68, respiratory rate 18, temp 97.4 F, and SpO2 of 96% on 2 L. CODE STATUS: Full code DVT prophylaxis: Lovenox Anticipated discharge date: Pending clinical course and recommendations from Physical/Occupational Therapy in regards to safe discharge plan Anticipated discharge place: Home care versus SNF Patient was seen independently by Nurse Pracitioner. This document was prepared using [employer] dictation software. Please allow for errors in oracle sql developer, while rare they do occur. I reviewed the documentation as provided by the LATONIA above, who is the original author of this note. I agree with the documented assessment and plan, with the following changes: none Objective - Vital Signs Vital signs: Vital Signs Temp 97.4 F L 07/17/24 07:41 Pulse 68 07/17/24 07:41 Resp 18 07/17/24 07:41 BP 122/75 07/17/24 07:41 Pulse Ox 96 07/17/24 07:41 FiO2 Intake & Output 07/16/24 07/17/24 07/17/24 18:59 06:59 18:59 Intake Total 200 Output Total 200 Balance 200 -200 Intake: Oral 200 Output: Urine 200 Other: Voiding Method External Catheter External Catheter # Voids 1 1 # Bowel Movements 1 - Labs CBC & Chem 7: 07/17/24 02:53 07/17/24 02:53 Labs: Abnormal Lab Results - Last 24 Hours (Table) 07/16/24 07/16/24 07/16/24 Range/Units 05:28 05:28 11:17 RBC 3.61 L (4.10-5.20) X 10*6/uL Hgb 11.0 L (12.0-15.0) g/dL Hct 34.1 L (37.2-46.3) % RDW 14.6 H (11.5-14.5) % BUN/Creatinine Ratio 21.00 H (12.00-20.00) Ratio Glucose 111 H (70-110) mg/dL POC Glucose (mg/dL) 135 H (70-110) mg/dL Calcium 8.4 L (8.7-10.3) mg/dL Total Bilirubin <0.2 L (0.3-1.2) mg/dL ALT 5 L (8-44) U/L Total Protein 5.1 L (6.2-8.2) g/dL Albumin 3.0 L (3.8-4.9) g/dL Albumin/Globulin Ratio 1.43 L (1.60-3.17) Ratio 07/16/24 07/16/24 07/17/24 Range/Units 16:22 19:58 06:30 RBC (4.10-5.20) X 10*6/uL Hgb (12.0-15.0) g/dL Hct (37.2-46.3) % RDW (11.5-14.5) % BUN/Creatinine Ratio (12.00-20.00) Ratio Glucose (70-110) mg/dL POC Glucose (mg/dL) 210 H 240 H 112 H (70-110) mg/dL Calcium (8.7-10.3) mg/dL Total Bilirubin (0.3-1.2) mg/dL ALT (8-44) U/L Total Protein (6.2-8.2) g/dL Albumin (3.8-4.9) g/dL Albumin/Globulin Ratio (1.60-3.17) Ratio
[2024-07-17 16:56] LABS: Glucose,Whole Blood 215 mg/dL (70-110)
[2024-07-17 20:16] LABS: Glucose,Whole Blood 212 mg/dL (70-110)
[2024-07-18 06:11] LABS: Glucose,Whole Blood 155 mg/dL (70-110)
[2024-07-18 11:52] LABS: Glucose,Whole Blood 171 mg/dL (70-110)
--- NOTE | 2024-07-18 12:51 | P.DS ---
Providers Date of admission: 07/14/24 20:49 Expected date of discharge: 07/18/24 Attending physician: Attila Potter MD Primary care physician: Raleigh Keynon DO Hospital Course: Discharge Diagnosis: COVID-19 pneumonitis with hypoxic respiratory failure Acute respiratory failure with hypoxia secondary to COVID 19 pneumonia E. coli UTI. Completed 4-day course of IV antibiotics with Rocephin and discharged home on an additional 1 day of Ceftin 500 mg twice daily. Weakness with recurrent falls. Discussed with patient possibility of going to snf facility for rehab, patient declined states she lives at home with her son and daughter and has home care. Hypomagnesemia. Resolved. Hypertension. Continue daily medication regimen with metoprolol tartrate 25 mg every 8 hours Hypothyroidism. Continue daily medication regimen with levothyroxine 75 mcg daily Hyperlipidemia. Continue daily medication regimen with atorvastatin 40 mg daily. Depression. Continue daily medication regimen with Depakote 500 mg nightly and Lexapro 10 mg daily Hospital course: Patient is a very pleasant 83-year-old female with a past medical history of hypertension, hypothyroidism, diabetes mellitus, and depression. She presented to the emergency department secondary to reports of weakness recurrent falls over the past week after recent diagnosis of COVID-19 infection. Upon arrival to our facility, patient underwent evaluation in the emergency department. Vital signs upon arrival show blood pressure 126/64, heart rate 76, respiratory rate 16, temp 101.0 F, and SpO2 of 96% on room air. 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 Labs completed and reviewed. CBC unremarkable. Coagulation profile showing high PTT of 31.5 otherwise normal findings. BMP showing no significant abnormalities. Blood glucose was 115. Lactic acid 1.3. Magnesium was low at 1.5. Liver profile unremarkable. Troponin was negative at less than 0.012 and TSH normal findings at 2.850. Urinalysis was a contaminated specimen, concerning for infection with nitrites, leukocyte esterase and greater than 182 WBCs. Patient admitted under our services at this time. Urine culture resulting positive for E. coli. Patient was evaluated by physical therapy, she was given the option of SNF for rehab versus home with home care, patient requesting to be discharged home with home care. Medically, she is stable at this time and stable for discharge home with family. Physical exam: Vital signs reviewed and stable. General: Nontoxic, no distress and appears stated age. Thin build Derm: Skin warm and dry, normal coloration for ethnicity. Head: Atraumatic, normocephalic and symmetric. Eyes: EOM's intact, no lid lag, and anicteric sclera Mouth: no lip lesions, mucus membranes moist Cardiovascular: regular rate and rhythm with normal S1S2, systolic murmur, positive posterior tibial pulses bilaterally, and cap refill < 2 seconds. Lungs: Respirations even, regular, and unlabored on room air. Lungs with soft expiratory wheezes, coarse cough noted at time of assessment Abdominal: soft, nontender to palpation, no guarding, no appreciable organomegaly Ext: ROM intact. No gross muscle atrophy, no edema, no contractures Neuro: Speech clear, face symmetrical and CN II-XII grossly intact with no noted focal neuro deficits Psych: Alert and oriented to person, place, time, and situation. Appropriate and pleasant affect. A total of 33 minutes of time were spent preparing this complex discharge summary. Pt was discharged on 07/18/2024 at 12:22 PM. Patient was seen independently by Nurse Practitioner. This document was prepared using [employer] dictation software. Please allow for errors in flow match sofa cutter while rare they do occur. I reviewed the documentation as provided by the LATONIA above, who is the original author of this note. I agree with the documented assessment and plan, with the following changes: none Patient Condition at Discharge: Stable Plan - Discharge Summary Discharge Rx Participant: No New Discharge Prescriptions: New cefUROXime axetiL [Ceftin] 500 mg PO BID 1 Days #2 tab Continue Mirabegron [Myrbetriq] 50 mg PO DAILY estradioL [Estring] 1 ring VAGINAL Q84D Levothyroxine Sodium [Synthroid] 75 mcg PO DAILY Escitalopram [Lexapro] 10 mg PO DAILY Atorvastatin [Lipitor] 40 mg PO DAILY Primidone [Mysoline] 1 dose PO DIRECTED Fosfomycin Tromethamine 3 gm PO DIRECTED Albuterol Sulfate [Albuterol Sulfate Hfa] 2 puff INHALATION RT-Q6H PRN PRN Reason: Wheezing Metoprolol Tartrate [Lopressor] 25 mg PO Q8H rOPINIRole HCL [Requip] 0.25 mg PO HS Furosemide [Lasix] 20 mg PO DAILY Methenamine Hippurate 1 gm PO BID-W/MEALS Fluticasone Nasal [place] [Flonase Nasal [place]] 2 spr EA NOSTRIL DAILY Divalproex ER [Depakote ER] 500 mg PO HS Nystatin/Triamcin Cream [Mycolog 100,000-0.1 Unit/gm-% Cream] 1 applic TOPICAL BID Discharge Medication List Albuterol Sulfate [Albuterol Sulfate Hfa] 2 puff INHALATION RT-Q6H PRN 07/15/24 [History] Atorvastatin [Lipitor] 40 mg PO DAILY 07/15/24 [History] Divalproex ER [Depakote ER] 500 mg PO HS 07/15/24 [History] Escitalopram [Lexapro] 10 mg PO DAILY 07/15/24 [History] Fluticasone Nasal [place] [Flonase Nasal [place]] 2 spr EA NOSTRIL DAILY 07/15/24 [History] Fosfomycin Tromethamine 3 gm PO DIRECTED 07/15/24 [History] Furosemide [Lasix] 20 mg PO DAILY 07/15/24 [History] Levothyroxine Sodium [Synthroid] 75 mcg PO DAILY 07/15/24 [History] Methenamine Hippurate 1 gm PO BID-W/MEALS 07/15/24 [History] Metoprolol Tartrate [Lopressor] 25 mg PO Q8H 07/15/24 [History] Mirabegron [Myrbetriq] 50 mg PO DAILY 07/15/24 [History] Nystatin/Triamcin Cream [Mycolog 100,000-0.1 Unit/gm-% Cream] 1 applic TOPICAL BID 07/15/24 [History] Primidone [Mysoline] 1 dose PO DIRECTED 07/15/24 [History] estradioL [Estring] 1 ring VAGINAL Q84D 07/15/24 [History] rOPINIRole HCL [Requip] 0.25 mg PO HS 07/15/24 [History] cefUROXime axetiL [Ceftin] 500 mg PO BID 1 Days #2 tab 07/18/24 [Rx] Follow up Appointment(s)/Referral(s): Raleigh Kenyon DO [Primary Care Provider] - 07/20/24 1:00 pm Patient Instructions/Handouts: Urinary Tract Infection in Women (DC), COVID-19 (Coronavirus Disease 2019) (DC) Activity/Diet/Wound Care/Special Instructions: Activity: As tolerated. Take breaks as needed. Diet: Heart healthy and carb consistent diet. Avoid salts, or foods with hidden salts such as canned or boxed foods and frozen dinners. Extra salt makes your heart work harder and traps the fluid in your body for longer. Special Instructions: Take all of your medications as directed and remember to keep all of your doctor's appointments and follow-up as needed. Thank you for allowing us to participate in your care, it was truly a pleasure having you for our patient!!! . Discharge Disposition: HOME WITH HOME HEALTH SERVICES
[2024-07-18 16:13] VITALS: BP 92/60; PULSE 65; RESP 17; TEMP 97
[2024-07-18 17:17] LABS: Glucose,Whole Blood 272 mg/dL (70-110)
== END 2024-07-18 18:40 | disposition home health service (06) ==
LOC: EC 18:47 → 4SSUR 20:49
PROVIDERS: ADMIT Internal Medicine; ATTEND Internal Medicine
DX: U07.1 COVID-19 (principal); J12.82 Pneumonia due to coronavirus disease 2019; J96.01 Acute respiratory failure with hypoxia; N39.0 Urinary tract infection, site not specified; B96.20 Unspecified Escherichia coli [E. coli] as the cause of diseases classified elsewhere; R53.1 Weakness; R29.6 Repeated falls; E83.42 Hypomagnesemia; D64.9 Anemia, unspecified; I10 Essential (primary) hypertension; E03.9 Hypothyroidism, unspecified; E11.65 Type 2 diabetes mellitus with hyperglycemia; E78.5 Hyperlipidemia, unspecified; F32.A Depression, unspecified; M19.90 Unspecified osteoarthritis, unspecified site; N39.3 Stress incontinence (female) (male); M75.102 Unspecified rotator cuff tear or rupture of left shoulder, not specified as traumatic; Z79.890 Hormone replacement therapy; Z79.899 Other long term (current) drug therapy; Z87.891 Personal history of nicotine dependence; Z91.81 History of falling; Z98.1 Arthrodesis status; Z88.5 Allergy status to narcotic agent; Z88.2 Allergy status to sulfonamides
CPT/HCPCS: 96366 ×2; 96367 ×3; 96372 ×4; 96376; 96365; 96375; 99291; 36415; 94760 ×2; 93005; 97162; 97166; 80053 ×4; 83605; 83615; 83735 ×4; 84100 ×2; 84443; 84484; 85025 ×2; 85027 ×2; 85610; 85730; 86140; 81001; 87086; 87077; 87186; 83036; 84145; 71046; G0378 ×5; J1100; J0696 ×4; J1650 ×4; J3475; J8540 ×4; J0131; J1741; J2470 ×2